=== PATIENT | male | born 1960 | race Caucasian/White ===

== ENCOUNTER 2016-12-05 12:50 | Emergency (ER) | payer BC, MEDICAID ==
[~2016-12-05] VITALS: Ht 182.9 cm; Wt 89.0 kg
[2016-12-05] MEDS ORDERED: LIDOCAINE HCL 1% 20ML VIAL (Pyxis) INJ MC ONE (14:00)
[2016-12-05] MEDS ORDERED: BACITRACIN ZINC OINT UDPKT TOP ONE ×2 (14:00)
[2016-12-05] MEDS ORDERED: IBUPROFEN 600MG TABLET PO ONE (14:00)
[2016-12-05 14:05] VITALS: BP 149/98
[2016-12-05] MEDS ORDERED: BUPIVACAINE HCL/PF 0.5% (5MG/ML) 10ML INFIL NR (14:45)
[2016-12-05] MEDS ORDERED: TETANUS, DIPHTHERIA, PERTUSSIS VAC/PF 0.5ML (>7YR OLD) IM ONE (15:45)
[2016-12-05] MEDS ORDERED: AMOXICILLIN/POTASSIUM CLAVULANATE 875/125MG TAB PO ONE (15:45)
== END 2016-12-05 16:28 | disposition home or self-care (01) ==
LOC: ER 14:24
DX: S62.631A Displaced fracture of distal phalanx of left index finger, initial encounter for closed fracture (principal); F17.200 Nicotine dependence, unspecified, uncomplicated; Z88.5 Allergy status to narcotic agent; W45.8XXA Other foreign body or object entering through skin, initial encounter; Y93.89 Activity, other specified; Y99.8 Other external cause status; Y92.89 Other specified places as the place of occurrence of the external cause
CPT/HCPCS: 12001; 29130; 73130; 90471; 90715; 99284; J3490; Z7610; A4565